=== PATIENT | male | born 1950 | race Caucasian/White ===

== ENCOUNTER 2025-07-15 11:15 | Outpatient (AMB) | payer MEDICARE, SELFPAY ==
--- NOTE | 2025-07-15 11:16 | A.PHYSOV ---
Vital Signs 07/15/25 11:19 Height 6 ft 1 in Weight 230 lb BMI 30.3 Intake Visit Reasons: eval for back injection Intake Note: Patient is a 75 year old male here with back pain today. Patient would like to discuss scheduling another back injection. Community Re[employer]ment Act Officer Required: No Allergies No Known Allergies Allergy (Verified 07/15/25 11:20) HPI Comments Details: History of Present Illness The patient is a 75 year old male presenting with a recurrence of right-sided back pain and sciatica related to a disc bulge. He reports the symptoms began again around June 27 after having good relief from a previous injection in January 2023. Patient underwent right L5 TFESI on 02/21/2023 with 100% reduction of his pain for over 2 years. The patient attributes the recurrence to being less diligent with his stretching exercises and overexertion from raking leaves. He has a history of physical therapy and is familiar with core strengthening exercises. He also noted new onset of left knee pain. Patient's pain has returned and he is requesting repeat injection. Pain Description - Location: The pain is located on the right side of his back. - Radiation: The pain radiates in a sciatic distribution. - Onset: The symptoms recurred around June 27. - Exacerbating factors: Symptoms are worsened by leaning backward and bending. - Provoking factors: The patient believes the pain was triggered by recent overexertion while raking leaves. [facility] Social History Alcohol intake: current Alcohol intake frequency: holidays/special occasions only Patient Tobacco Use Status: Never used Tobacco Use of substances other than those prescribed or required for medical reasons: No Current occupational status: employed Review of Systems Narrative Review of Systems - Musculoskeletal: Reports recurrent right-sided back pain with sciatica and new left knee pain. Physical Exam Exam Exam: Physical Exam Lumbar Spine: Examination of his lumbar spine, there is no visible swelling or deformity. He is tender to the right lower lumbar facets. Has full range of motion of his lumbar spine. He does have an increase in pain with facet loading. Special Tests: Lhermittes sign was negative Heel Toe walk is normal Left straight leg raise: Negative Right straight leg raise: Positive right Special tests Alfonso test is negative Ganslen's test is negative SI Joint compression test negative Redd test negative Piriformis stretch is negative Lower Extremities: Full range of motion bilateral lower extremities. No calf pain or edema Neuro: Sensation: Intact to lower extremities bilaterally Strength L2 (Psoas): 5/5 on the left and 5/5 on the right. L3 (Quads): 5/5 on the left and 5/5 on the right. L4 (Ant tibialis): 5/5 on the left and 5/5 on the right. L5 (EHL) 5/5 on the left and 5/5 on the right. S1 (Gastroc): 5/5 on the left and 5/5 on the right. DTR L4: (Patellar) Left 2 Right 2 S1: (Achilles) Left 1 Right 1 Babinski Downgoing No pathologic clonus. No involuntary movement. Vital Signs: BMI result Body Mass Index 30.3 Assessment & Plan Assessment & Plan (1) Lumbar radiculopathy: Code(s): M54.16 - Radiculopathy, lumbar region Category: Medical (2) Lumbar spondylosis: Code(s): M47.816 - Spondylosis without myelopathy or radiculopathy, lumbar region Category: Medical Plan Pain Management - Analgesia: The patient is requesting a repeat injection, noting a previous injection in January 2023 was effective. - Activities of Daily Living: The patient reports he has not been performing his stretching exercises and that the pain was exacerbated by yard work. Plan Patient was informed and verbally consented to the use of an ambient scribe for clinic note documentation during this visit. 1. Lumbago With Sciatica, Right Side To address the patient's recurrent right-sided back pain and sciatica, a lumbar injection will be administered. An order for the injection will be placed, and authorization will be obtained from his insurance. The procedure will be done in the office with sedation. The patient is encouraged to resume his core strengthening exercises to prevent future flare-ups. A follow-up visit is scheduled for three weeks after the procedure, which can be canceled if he experiences significant pain relief. 2. Arthralgia Of Left Knee The patient incidentally reported left knee pain; however, no specific evaluation or plan was discussed during this visit. Discussion Notes I discussed the patient's recurrence of right-sided back pain and sciatica, noting he had good relief from his previous injection in January 2023. We agreed to proceed with a repeat injection. I explained that we must first get insurance authorization and that the procedure would likely be scheduled for early July. The patient expressed his preference to have the procedure done in-office with sedation. We discussed the importance of resuming his core strengthening exercises once the pain improves to provide better long-term protection for his back. I advised him that he has a follow-up appointment scheduled for 3 weeks after the procedure but that he can cancel it if his symptoms have resolved. Patient Instructions - Our office will request authorization from your insurance for a back injection. - We will call you to schedule the injection once it is approved. - The procedure will take place in our office. - Once your pain improves after the injection, please resume your home stretching and core strengthening exercises. - You may call and cancel your follow-up appointment in 3 weeks if you are feeling significantly better. - Avoid activities that strain your back, such as heavy yard work. Coding Level of Care Code Tele Est Pt Level 3 (30805) Diagnoses Lumbar radiculopathy M54.16 Lumbar spondylosis M47.816
[2025-07-15 11:19] VITALS: BMI 30.3
--- OUTSIDE RECORDS SUMMARY | 2025-07-15 14:21 | XMS_ITS | Encounter Summary ---
Author Organization [facility] Address [address] [place] [address] Care Team Providers Care Equipment Scheduler Name Role Phone Benny Jolly MD Primary Care Provider + [phone] Encounter Details Date Type Department Care Team (Late st Contact Info) Description 07/01/2024 Scanned Document [address] [place] [address] [id number] Provider, Generic Social History Tobacco Use Types Packs/Day Years Used Date Smoking Tobacco: Never Smokeless Tobacco: Never Sex and Gender Information Value Date Recorded Sex Assigned at Not on file Legal Sex Male 12:22 PM EDT Gender Identity Not on file Sexual Orientation Not on file documented as of this encounter Plan of Treatment Not on file documented as of this encounter Visit Diagnoses Not on filedocumented in this encounter Care Teams Equipment Scheduler Relationship Specialty Start Date End Date Benny Jolly MD PCP - General 01/13/19 documented as of this encounter
--- OUTSIDE RECORDS SUMMARY | 2025-07-15 14:21 | XMS_ITS | Clinical Summary ---
Author Organization [facility] Address [address] [place] [address] Phone Care Team Providers Care Mall Manager Name Role Phone Jaki Jolly MD Primary Care Provider [phone] Allergies No known active allergies Medications terazosin (HYTRIN) 10 MG capsule Take 10 mg by mouth nightly at bedtime. Active oxybutynin (DITROPAN) 5 MG tablet Take 5 mg by mouth 3 (three) times a day. Active Social History Tobacco Use Types Packs/Day Years Used Date Smoking Tobacco: Never Assessed Education Answer Date Recorded Are you interested in more education? Not on demetrius e 11/19/2022 Are you concerned about learning? Not on file 11/19/2022 No 11/19/2022 No 11/19/2022 Digital Access Answer Date Recorded No 12/18/2022 No 12/18/2022 No 12/18/2022 Reliable internet access at home? Not on file 12/18/2022 Device with a working camera? Not on file Sex and Gender Information Value Date Recorded Sex Assigned at Not on file Legal Sex Male 10:40 AM EDT Gender Identity Not on file Sexual Orientation Not on file Last Filed Vital Signs Vital Sign Reading Time Taken Comments Blood Pressure 146/82 04/26/2019 2:39 PM EDT Pulse 72 04/26/2019 2:39 PM EDT Temperature - - Respiratory Rate - - Oxygen Saturation - - Inhaled Oxygen Concentration - - Weight - - Height - - Body Mass Index - - Plan of Treatment Health Maintenance Due Date Last Done Comments LIPID PANEL 1952 DEPRESSION SCREENING 1964 SMOKING Hx and SMOKELESS TOBACCO SCREENING 1965 HEPATITIS C SCREENING 1970 COLOGUARD 1997 COLONOSCOPY 1997 COLORECTAL CANCER SCREENING 1997 FIT TEST 1997 FOBT 1997 SIGMOIDOSCOPY 1997 VIRTUAL COLONOSCOPY 1997 PNEUMOCOCCAL VACCINES (50+ years) (1 of 1 - PCV) 2002 ZOSTER VACCINES (2 of 3) 10/03/2012 08/08/2012 Adult Td,Tdap Booster 03/02/2021 03/02/2011, 004 INFLUENZA VACCINE (#1) 2025 8, 05/23/2012, 05/09/2008, Additional history exists COVID-19 VACCINE (2 - 2024- season) 2025 09/26/2020 RSV VACCINE (1 - 1-dose 75+ series) 2027 HEPATITIS A VACCINES Aged Out No long er eligible based on patient's age to complete this topic HIB VACCINES Aged Out No longer eligi ble based on patient's age to complete this topic MENINGOCOCCAL VACCINES (ACWY) Aged Out No longer eligible based on patient's age to complete this topic MENINGOCOCCAL VACCINES (B) Aged Out N o longer eligible based on patient's age to complete this topic Medical Devices Not on file Insurance [facility] H[facility] POS [facility] POS [employer] [facility] H[facility] POS HMO POS [facility] HMO POS Care Teams Mall Manager Relationship Specialty Start Date End Date Jaki Jolly MD [address] [place] [id number] PCP - General Internal Medicine 01/15/19 Additional Source Comments The information contained in this document represents components of the legal health record. It is not the complete legal health record.[facility]
--- OUTSIDE RECORDS SUMMARY | 2025-07-15 14:21 | XMS_ITS ---
Author Name [facility] Organization Unknown History of Medication Use Medication Directions Dispensed Refills Start Date End Date Stat us benzonatate (TESSALON) 200 MG capsule Take 1 capsule (200 mg total) by mouth 3 (three) times a day as needed for cough. 07/04/2024 active predniSONE (DELTASONE) 20 MG tablet Take 2 tablets (40 mg total) by mouth daily. 07/04/2024 active cetirizine (ZyrTEC) 10 MG tablet Take 1 tablet (10 mg total) by mouth daily. 07/01/2024 08/01/2024 active trimethoprim-polymyx in b (POLYTRIM) ophthalmic solution Administer 1 drop into the left eye every 4 (four) hours. 07/01/2024 07/09/2024 active azithromycin (ZITHROMAX) 250 MG tablet Take 2 tabs PO on day 1, followed by 1 tab PO on days 2 through 5. 07/01/2024 07/06/2024 active albuterol (PROVENTIL HFA; VENTOLIN HFA) 108 (90 Base) MCG/ACT inhaler Inhale 2 puffs 4 times daily (every 6 hours) as needed for wheezing or shortness of breath. 07/01/2024 07/04/2024 active proMETHAZINE-dextrom ethorphan (proMETHAZINE-DM) 6.25-15 MG/5ML syrup Take 5 mL by mouth every 4 (four) hours as needed for cough. 07/01/2024 active lisinopril (PRINIVIL,ZeSTRIL) 40 MG tablet Take 40 mg by mouth daily. 03/15/2024 active furosemide (LASIX) 20 MG tablet Take 20 mg by mouth daily. 11/22/2023 active terazosin (HYTRIN) 1 MG capsule Take 1 mg by mouth nightly. active Problems Problem Status Onset Date Problem Type Date of Resoluti on Source Bronchitis active EncounterDiagnosisAct [facility] Encounters Encounter Type Encounter Reason Primary Diagnosis Location Date Ambulatory Bronchitis, not specified as acute or chronic Bronchitis, not specified as acute or chronic [email or web address] 07/04/2024 Ambulatory Cough Cough [facility] 07/01/2024 Care Team Organization Name Specialty Phone Email Start Date End Da te [facility] 07/03/2024 10/10/2024 [email or web address] 07/01/2024 [facility] 06/01/2022 03/12/2024
--- OUTSIDE RECORDS SUMMARY | 2025-07-15 14:21 | XMS_ITS | Encounter Summary ---
Author Organization [facility] Address [address] [place] [address] Phone Care Team Providers Care Senior Corporate Recruiter Name Role Phone Jaki Jolly MD Primary Care Provider [phone] Encounter Details Date Type Department Care Team (Late st Contact Info) Description 04/26/2019 Procedure Pass [facility] [address] [place] [address] Social History Tobacco Use Types Packs/Day Years Used Date Smoking Tobacco: Never Assessed Sex and Gender Information Value Date Recorded Sex Assigned at Not on file Legal Sex Male 10:40 AM EDT Gender Identity Not on file Sexual Orientation Not on file documented as of this encounter Plan of Treatment Not on file documented as of this encounter Visit Diagnoses Not on filedocumented in this encounter Care Teams Senior Corporate Recruiter Relationship Specialty Start Date End Date Jaki Jolly MD [address] [place] [address] PCP - General Internal Medicine 01/15/19 documented as of this encounter Additional Source Comments The information contained in this document represents components of the legal health record. It is not the complete legal health record.[facility]
--- OUTSIDE RECORDS SUMMARY | 2025-07-15 14:21 | XMS_ITS | Encounter Summary ---
Author Organization [facility] Address [address] [place] [address] Care Team Providers Care Experimental Machinist Name Role Phone Benny Jolly MD Primary Care Provider [phone] Encounter Details Date Type Department Care Team (Late st Contact Info) Description 07/04/2024 Scanned Document [address] [place] [address] [phone] Provider, Generic Social History Tobacco Use Types [...] on filedocumented in this encounter Care Teams Experimental Machinist Relationship Specialty Start Date End Date Benny Jolly MD PCP - General 01/13/19 documented as of this encounter
--- OUTSIDE RECORDS SUMMARY | 2025-07-15 14:21 | XMS_ITS | Clinical Summary ---
Author Organization [facility] [address] [facility] lding Address [address] [place] [address] Phone Care Team Providers Care Welder Fitter Apprentice Name Role Phone Jaki Jolly MD Primary Care Provider [phone] Allergies No known active allergies Medications selenium sulfide (SELSUN) 2.5 % lotion Apply topically 1 (one) time each day if needed for dandruff. Leave on scalp 2-3 minutes, rinse thoroughly 120 mL 1 024 Active hydrocortisone (ANUSOL-HC) 25 mg suppository Insert 1 suppository (25 mg total) into the rectum 2 (two) times a day if needed for hemorrhoids. 12 suppository 1 025 Active betamethasone dipropionate (DIPROSONE) 0.05 % cream Apply topically 2 (two) times a day if needed for irritation or rash. 15 g 2 025 2025 Active ketoconazole (NIZORAL) 2 % shampoo APPLY TOPICALLY 1 (ONE) TIME PER WEEK. APPLY TO DAMP SKIN, LATHER, LEAVE ON 5 MINUTES, AND RINSE 120 mL 1 025 Active furosemide (LASIX) 20 mg tablet TAKE 1 TABLET BY MOUTH EVERY DAY 90 tablet 1 025 Active lisinopril (PRINIVIL,ZESTR IL) 40 mg tablet Take 1 tablet (40 mg total) by mouth 1 (one) time each day. 90 tablet 1 025 Active omeprazole (PriLOSEC) [address] capsule Take 1 capsule (20 mg total) by mouth 1 (one) time each day. Do not crush or chew. 90 each Active fluticasone propionate (FLONASE) 50 mcg/actuation nasal spray SPRAY 2 SPRAYS INTO EACH NOSTRIL EVERY DAY 48 mL 1 Active fluticasone propionate (FLONASE) 50 mcg/actuation nasal spray Administer 2 sprays into each nostril 1 (one) time each day. 48 mL 025 2024 Discontinued amoxicillin-cla vulanate (AUGMENTIN) 875-125 mg per tablet Take 1 tablet by mouth 2 (two) times a day for 7 days. 14 each 025 2024 dextromethorpha n-guaiFENesin (ROBITUSSIN-DM) 10-100 mg/5 mL syrup Take 10 mL by mouth every 6 (six) hours if needed for cough for up to 7 days. 280 mL 025 2024 Active Problems Problem Noted Date Diagnosed Date Colon cancer screening 06/27/2025 Overview (06/27/2025): 06/14--5 yrs Gastroesophageal reflux disease without esophagi tis 12/24/2024 Overview (12/24/2024): EGD 12/16. Dilation stricture Esophageal dysmotility 05/08/2024 Schatzki's ring of distal esophagus 05/08/2024 Overview (12/24/2024): Dilated 12/16 Primary hypertension 02/09/2022 Bilateral inguinal hernia without obstruction or gangrene 01/10/2019 Peripheral vascular disease 12/08/2018 Overview (05/08/2024): Atherosclerosis and abdominal aorta and branching vasculature noted on CT scan 12/10, started on statin Hypercholesteremia 12/08/2018 Obesity (BMI 30-39.9) 02/15/2018 Chronic insomnia 10/28/2016 Overview (05/08/2024): Seen in pulmo September 2016 and sleep study ordered. Note 10/25/2016 from Sleep Medicine. indicated patient declining appt to schedule. [email or web address] message sent to patient. 04/2017 - Home Sleep Study did not reveal sleep apnea. [email or web address] message to Dagoberto asking him to schedule FU and would try to order diagnostic overnight study. Allergic rhinitis 08/16/2006 Benign prostatic hyperplasia without lower urinary tract symptoms 08/16/2006 Overview (05/08/2024): Intol Flomax TURP 01/08 Resolved Problems Problem Noted Date Diagnosed Date Resolved Date Hiatal hernia 11/21/2020 12/24/2024 Overview (05/08/2024): Barium swallow 11/12. Esoph stricuture Fibroepithelial polyp 10/24/20172024 Seborrhea 08/16/2006 12/24/2024 Overview (05/08/2024): scalp Encounters Date Type Department Care Team Description 07/03/2025 4:02 PM EST - 07/03/2025 11:59 PM EST [facility] [address] [place] [address] Subacute cough Discharge Disposition: Home or Self Care 07/03/2025 3:45 PM EST Office Visit Walk-In Clinic - [address] [phone] Leonel Corey PA Acute bacterial rhinosinusitis (Primary Dx); Subacute cough 06/27/2025 11:05 AM EST Lab Draw Station - [address] [phone] Primary hypertension 06/27/2025 10:45 AM EST Office Visit Adult Medicine - [address] [phone] Jaki Jolly MD Primary hypertension (Primary Dx); Colon cancer screening; Encounter for immunization from Last 3 Months Immunizations Immunization Administration Dates Next Due Influenza trivalent, 0.5mL ( Fluad) 65yo and older 06/27/2025 Influenza trivalent, 0.5mL, preservative free (Fluarix; FluLaval; Fluzone) ages 6mo and older (Afluria) 3 years and older 05/23/2012,05/09/2008,06/24/2006,07/13,06/18/2003 Influenza, Unspecified 05/05/2021 Moderna SARS-CoV-2 COVID-19, mRNA, LNP-S, preservative free 10/24/2020,09/26/2020 Pneumococcal conjugate 13 va lent (Prevnar 13, PCV13) 2mo and older 08/03/2021 Pneumococcal polysaccharide 23 valent (Pneumovax 23) 2yo and older 03/20/2020 Td Tetanus diptheria (Tdvax) 7yo and older 04/15/2022,07/10/2004 Tdap Tetanus diptheria acell ular pertussis (Boostrix; Adacel) 7yo and older 03/02/2011 Zoster Live 08/08/2012 Surgical History Surgery Date Site/Laterality Comments OTHER SURGICAL HISTORY 2004 PROCEDURE: NASAL ENDOSCOPY, POLYPECT COLONOSCOPY 08/2005 PROCEDURE: HISTORICAL COLONOSCOPY COLONOSCOPY 05/06/2011 PROCEDURE: SD COLONOSCOPY STOMA DX INCLUDING COLLJ SPEC SPX; COMMENT: normal; repeat in ten yrs TURP / TRANSURETHRAL INCISIO N / DRAINAGE PROSTATE 12/2016 PROCEDURE: HISTORICAL TURP ESOPHAGOGASTRODUODENOSCOPY 01/15/2021 PROCEDURE: SD EGD TRANSORAL BIOPSY SINGLE/MULTIPLE; COMMENT: No stricture. 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 mbosacral intervertebral disc 10/14/03 DX:Degeneration of lumbar or lumbosacral intervertebral disc Lumbago 10/14/03 DX:Lumbago Sciatica 10/14/03 DX:Sciatica Need for prophylactic vaccin ation and inoculation against influenza 06/18/03 DX:Need for prophylactic vaccination and inoculation against influenza Nasal/sinus dis NEC 04/10/03 DX:Nasal/sin us dis NEC Historical Medical DX 05/14/02 DX:Unspeci fied viral warts Contact dermatitis and other eczema due to plants (except food) 11/24/01 DX:Contact dermatitis and other eczema due to plants (except food) Acute bronchitis 09/03/01 DX:Acute bronch itis Unspecified asthma(493.90) 09/03/01 DX:Un specified asthma(493.90) Family history of malignant neoplasm of gastrointestinal tract 11/26/99 DX:Family history of maligna nt neoplasm of gastrointestinal tract Stricture and stenosis of esophagus 11/06/99 DX:Stricture and stenosis of esophagus Ulcer of lower limbs, except pressure ulcer (CMS/HCC V24, CMS/HCC V28) 11/19/98 DX:Ulcer of lower young bs, except pressure ulcer Dermatophytosis of nail 11/19/98 DX:Tanana tophytosis of nail Unspecified glaucoma(365.9) DX:U nspecified glaucoma(365.9) Esophageal dysmotility DX:Esopha geal dysmotility Hiatal hernia DX:Hiatal hernia Schatzki's ring of distal esophagus DX:Schatzki's ring of distal esophagus Gastroesophageal reflux dise ase without esophagitis 12/24/2024 EGD 12/16. Dilation stricture Family History Medical History Relation Name Comments No Known Problems Daughter Hypertension Father Other cancer Father colon Other cancer Mother breast No Known Problems Sister 1 No Known Problems Sister 2 No Known Problems Son 1 No Known Problems Son 2 Blindness Neg Hx Cataracts Neg Hx Glaucoma Neg Hx Macular degeneration Neg Hx Strabismus Neg Hx Relation Name Status Comments Daughter Alive Father Mother Sister 1 Alive Sister 2 Alive Son 1 Alive Son 2 Alive Social History Tobacco Use Types Packs/Day Years Used Date Smoking Tobacco: Never Smokeless Tobacco: Never Tobacco Cessation:Counseling Given: Not Answered Alcohol Use Standard Drinks/Week Comments Yes 0 (1 standard drink = 0.6 oz pur e alcohol) 2 Housing Instability Answer Date Recorde d Are you worried that in the next 2 months you may not have stable housing? No 06/19/2024 Food Access & Nutrition Answer Date Rec orded Do you have access to a vari ety of food including fruits and vegetables? No 06/19/2024 Access to Healthcare Answer Date Record ed Within the last 3 months, ho w many times did you visit the emergency department for your medical care? 0 06/19/2024 Health Literacy Answer Date Recorded How often do you need to hav e someone help you when you read instructions, pamphlets, or other written material from your doctor or pharmacy? Never 06/19/2024 Caregiver: How often do you need to have someone help you when you read instructions, pamphlets, or other written material from your doctor or pharmacy? Not on file 06/19/2024 Financial Risk Answer Date Recorded How hard is it for you to pa y for the very basics like food, housing, medical care, and air conditioning / heating? Not very hard 06/19/2024 Transportation Answer Date Recorded Has the lack of transportati on kept you from meetings, work, or from getting things needed for daily living? No Has the lack of transportati on kept you from medical appointments or from getting medications? No 06/19/2024 Social Isolation Answer Date Recorded How often do you feel lonely or isolated from th ose around you? Never 06/19/2024 Food Risk Answer Date Recorded Within the past 12 months we worried whether our food would run out before we got money to buy more. Never true 06/19/2024 Within the past 12 months th e food we bought just didn't last and we didn't have money to get more. Never true 06/19/2024 Dependent Care Answer Date Recorded Do you need help finding or paying for care for your loved ones. For example, residential child care counselor or elderly care for an older adult? No 06/19/2024 Education Answer Date Recorded Do you think completing more education or training, like finishing a GED, going to college, or learning a trade, would be helpful for you? No 06/19/2024 Employment and Income Answer Date Recor ded During the last four weeks, have you been actively looking for work? No 06/19/2024 Living Situation Answer Date Recorded What is your living situation? Unrecognized valu e 06/19/2024 Interpersonal Safety Answer Date Record ed Physical Abuse Unrecognized value 12/04/2024 Verbal Abuse Unrecognized value 12/04/2024 Sex and Gender Information Value Date Recorded Sex Assigned at Not on file Legal Sex Male 3:49 PM EST Gender Identity Not on file Sexual Orientation Not on file Occupation Industry Job Start Date Job End Date RETIRED Not on file Not on file Not on file Last Filed Vital Signs Vital Sign Reading Time Taken Comments Blood Pressure 159/79 07/03/2025 3:42 PM EST Pulse 80 07/03/2025 3:42 PM EST Temperature 36.7 C (98 F) 07/03/2025 3:42 PM EST Respiratory Rate 14 12/04/2024 3:24 PM EDT Oxygen Saturation 98% 07/03/2025 3:42 PM EST Inhaled Oxygen Concentration - - Weight 111 kg (245 lb 12.8 oz) 06/27/2025 10:38 AM EST Height 185.4 cm (6' 1 ) 06/27/2025 10:38 AM EST Body Mass Index 32.43 06/27/2025 10:38 AM EST Plan of Treatment Upcoming Encounters Date Type Department Care Team (Late st Contact Info) Description 07/17/2025 2:00 PM EST Office Visit Adult [facility] [address] [place] [phone] Lindsay Rizvi NP [address] [place] [address] 01/15/2026 10:45 AM EDT Office Visit [facility] [address] [place] [phone] Jaki Jolly MD [address] [place] [address] Health Maintenance Due Date Last Done Comments COVID-19 Vaccine ( season) 2025 07/06/2021, 10/24/2020, 09/26/2020 Medicare Annual Wellness Visit 06/19/2025 06/19/2024 Social Influencers of Health Screening 06/19/2025 06/19/2024 Falls Risk Assessment 12/04/2025 12/04/2024, 024 Colorectal Cancer Screening: Colonoscopy 05/26/2026 05/26/2021 Hypertension/CHF/CAD Annual BMP Blood Test 06/27/2026 06/27/2025, 12/24/2024, 03/15/2024, Additional history exists Cholesterol Screening (Lipid Panel) 12/24/2029 12/24/2024, 06/07/2023 DTaP,Tdap,and Td Vaccines (5 - Td or Tdap) 08/30/2034 08/30/2024, 04/15/2022, 03/02/2011, Additional history exists Hepatitis C Screening Completed 11/27/2013 Zoster Vaccines Completed 11/25/2020, 07/25, 08/08/2012 Pneumococcal Vaccine: 50+ Years Completed 08/03/2021, 03/20/2020 RSV Immunization Adult Patients Completed 08/16/2024 Depression Screening Completed 12/17/2024 Influenza Vaccine Completed 06/27/2025, , 05/29/2021, Additional history exists HIB Vaccines Aged Out No longer eligi ble based on patient's age to complete this topic HPV Vaccines Aged Out No longer eligi ble based on patient's age to complete this topic Hepatitis A Vaccines Aged Out No long er eligible based on patient's age to complete this topic Hepatitis B Vaccines Aged Out No long er eligible based on patient's age to complete this topic IPV Vaccines Aged Out No longer eligi ble based on patient's age to complete this topic MMR Vaccines Aged Out No longer eligi ble based on patient's age to complete this topic Meningococcal ACWY Vaccine Aged Out N o longer eligible based on patient's age to complete this topic Meningococcal B Vaccine Aged Out No l onger eligible based on patient's age to complete this topic RSV Immunization Patients Under 20 months Aged Out No longer eligible based on patient's age to complete this topic Varicella Vaccines Aged Out No longer eligible based on patient's age to complete this topic Procedures Procedure Name Priority Date/Time Associated Diagnosis Comments POC RESPIRATORY SYNCYTIAL VIRUS Routine 07/03/2025 6:32 PM EST Subacute cough XR CHEST 2 VIEWS STAT 07/03/2025 4:07 PM EST Subacute cough BASIC METABOLIC PANEL Routine 06/27/2025 11:01 AM EST Primary hypertension LIPID PANEL WITH REFLEX TO DIRECT LDL Routine 12/24/2024 10:11 AM EDT Screening, lipid COLONOSCOPY Routine 05/26/2021 HEPATITIS C SCREENING Routine 11/27/2013 from Last 3 Months or Most Recently Relevant to Health Maintenance Results * POC respiratory syncytial virus manually resulted (07/03/2025 6:32 PM EST) RSV Rapid AG POC Negative Negative Internal Control Pass Yes Yes Swab Nasopharyngeal structure / Unknown 07/03/2025 6:32 PM EST us Leonel CARR POINT OF CARE TEST ENTER/E DIT ORDERABLES Final Result * XR Chest 2 Views (07/03/2025 4:07 PM EST) Anatomical Region Laterality Modality Body Radiographic Maribel ging 07/03/2025 4:14 PM EST Impressions 07/03/2025 4:18 PM EST No evidence of an acute chest process. -------- FINAL REPORT -------- Dictated By: Lashawn Arellano Dictated Date: 07/03/2025 16:14 ET Assigned Physician: Lashawn Arellano Reviewed and Electronically Signed By: Lashawn Arellano Signed Date: 07/03/2025 16:18 ET Workstation ID: [id number] Transcribed By: Self Edit Transcribed Date: 07/03/2025 16:14 ET Narrative 07/03/2025 4:18 PM EST EXAM: Chest x-ray HISTORY: Subacute cough. COMPARISON: 07/19/2024 FINDINGS: PA and lateral views of the chest were performed. No focal infiltrate, pleural effusion, or evidence of pulmonary edema. Heart is not enlarged. Mediastinal contours are stable and within normal limits. Degenerative changes in the spine. Procedure Note Lashawn Arellano MD - 07/03/2025 EXAM: Chest x-ray HISTORY: Subacute cough. COMPARISON: 07/19/2024 FINDINGS: PA and lateral views of the chest were performed. No focal infiltrate, pleural effusion, or evidence of pulmonary edema.Heart is not enlarged. Mediastinal contours are stable and within normallimits. Degenerative changes in the spine. IMPRESSION: No evidence of an acute chest process. -------- FINAL REPORT -------- Dictated By: Lashawn Arellano Dictated Date: 07/03/2025 16:14 ET Assigned Physician: Lashawn Arellano Reviewed and Electronically Signed By: Lashawn Arellano Signed Date: 07/03/2025 16:18 ET Workstation ID: [id number] Transcribed By: Self Edit Transcribed Date: 07/03/2025 16:14 ET us Leonel CARR IMG XR PROCEDURES Final Re sult * (ABNORMAL) Basic metabolic panel (06/27/2025 11:01 AM EST) Sodium 140 133 - 145 mmol/L 06/27/2025 2:14 PM [facility] Potassium 3.9 3.5 - 5.5 mmol/L 06/27/2025 2:14 PM [facility] Chloride 101 96 - 110 mmol/L 06/27/2025 2:14 PM [facility] CO2 29 21 - 32 mmol/L 06/27/2025 2:14 PM [facility] Anion Gap 10 3 - 11 06/27/2025 2:14 PM [facility] Glucose 107(H) 70 - 100 mg/dL 06/27/2025 2:14 PM [facility] BUN 16 5 - 25 mg/dL 06/27/2025 2:14 PM [facility] Creatinine 0.93 0.70 - 1.30 mg/dL 06/27/2025 2:14 PM [facility] eGFR 87 >=60 mL/min/1. 73m2 06/27/2025 2:14 PM [facility] Comment:Calculation based on the Chronic Kidney Disease Epidemiology Collaboration (CKD-EPI) equation refit without adjustment for race. BUN/Creatinine Ratio 17.2 06/27/2025 2:14 PM EST [facility] Calcium 8.8 8.5 - 10.5 mg/dL 06/27/2025 2:14 PM EST [facility] Blood Venous blood specimen / Unknown Venipuncture / Unknown 06/27/2025 11:01 AM EST 06/27/2025 11:02 AM EST C Juan Francisco Jolly MD LAB BLOOD ORDERABLES Final Res ult [facility] [address] [place] [address], [place] [phone] * (ABNORMAL) Lipid panel with reflex to direct LDL (12/24/2024 10:11 AM EDT) Cholesterol 162 0 - 200 mg/dL LAB CHEMISTRY METHOD 12/24/2024 1:52 PM EDT [facility] Triglycerides 72 0 - 150 mg/dL LAB CHEMISTRY METHOD 12/24/2024 1:52 PM EDT [facility] HDL 45 >=40 mg/dL LAB CHEMISTRY METHOD 12/24/2024 1:52 PM EDT [facility] LDL Calculated 103(H) 0 - 100 mg/dL LAB CHEMISTRY METHOD 12/24/2024 1:52 PM EDT [facility] VLDL Cholesterol Lico 14.4 mg/dL LAB CHEMISTRY METHOD 12/24/2024 1:52 PM EDT [facility] Non HDL Chol. (LDL+VLDL) 117 <145 mg/dL LAB CHEMISTRY METHOD 12/24/2024 1:52 PM EDT [facility] Chol/HDL Ratio 3.6 0.0 - 4.4 LAB CHEMISTRY METHOD 12/24/2024 1:52 PM [facility] Blood Venous blood specimen / Unknown Venipuncture / Unknown 12/24/2024 10:11 AM EDT 12/24/2024 10:11 AM EDT Jaki Jolly MD LAB BLOOD ORDERABLES Final Res ult [facility] [address] [place] [address], * Colonoscopy (05/26/2021) Colonoscopy normal, sbstracted Anatomical Region Laterality Modality Other Historical Provider HEALTH MAINTENANCE Final Result * Hepatitis C Screening (11/27/2013) Hepatitis C Screening abstracted Historical Provider HEALTH MAINTENANCE Final Result from Last 3 Months or Most Recently Relevant to Health Maintenance Insurance MEDICARE [facility] Care Teams Welder Fitter Apprentice Relationship Specialty Start Date End Date Jaki Jolly MD [address] [place] [id number] PCP - General 11/14/01
--- OUTSIDE RECORDS SUMMARY | 2025-07-15 14:21 | XMS_ITS | Encounter Summary ---
Author Organization [facility] Address [address] [place] [address] Phone Care Team Providers Care Malt Liquors Sales Supervisor Name Role Phone Jaki Jolly MD Primary Care Provider [phone] Encounter Details Date Type Department Care Team (Late st Contact Info) Description 04/26/2019 Procedure Pass [facility] [address] [place] [address] Social History Tobacco Use Types Packs/Day Years [...] on filedocumented in this encounter Care Teams Malt Liquors Sales Supervisor Relationship Specialty Start Date End Date Jaki Jolly MD [address] [place] [address] PCP - General Internal Medicine 01/15/19 documented as of this encounter Additional Source Comments The information contained in this document represents components of the legal health record. It is not the complete legal health record.[facility]
--- OUTSIDE RECORDS SUMMARY | 2025-07-15 14:21 | XMS_ITS | Clinical Summary ---
Author Organization [facility] Address [address] [place] [address] Care Team Providers Care Loom Checker Name Role Phone Benny Jolly MD Primary Care Provider [phone] Allergies No known active allergies Medications terazosin (HYTRIN) 1 MG capsule Take 1 mg by mouth nightly. Active lisinopril (PRINIVIL,ZeSTR IL) 40 MG tablet Take 40 mg by mouth daily. 4 Active furosemide (LASIX) 20 MG tablet Take 20 mg by mouth daily. 4 Active proMETHAZINE-de xtromethorphan (proMETHAZINE-D M) 6.25-15 MG/5ML syrupIndication s:Acute bacterial bronchitis Take 5 mL by mouth every 4 (four) hours as needed for cough. 120 mL 4 Active cetirizine (ZyrTEC) 10 MG tabletIndicatio ns:Acute bacterial bronchitis Take 1 tablet (10 mg total) by mouth daily. 30 tablet 4 Active trimethoprim-po lymyxin b (POLYTRIM) ophthalmic solutionIndicat ions:Acute bacterial bronchitis Administer 1 drop into the left eye every 4 (four) hours. 10 mL 4 Active predniSONE (DELTASONE) 20 MG tabletIndicatio ns:Bronchitis Take 2 tablets (40 mg total) by mouth daily. 10 tablet 4 Active albuterol (PROVENTIL HFA; VENTOLIN HFA) 108 (90 Base) MCG/ACT inhalerIndicati ons:Bronchitis Inhale 2 puffs 4 times daily (every 6 hours) as needed for wheezing or shortness of breath. 1 each 4 Active benzonatate (TESSALON) 200 MG capsuleIndicati ons:Bronchitis Take 1 capsule (200 mg total) by mouth 3 (three) times a day as needed for cough. 30 capsule 4 Active Active Problems No known active problems Social History Tobacco Use Types Packs/Day Years Used Date Smoking Tobacco: Never Smokeless Tobacco: Never Tobacco Cessation:Counseling Given: Not Answered Sex and Gender Information Value Date Recorded Sex Assigned at Not on file Legal Sex Male 12:22 PM EDT Gender Identity Not on file Sexual Orientation Not on file Last Filed Vital Signs Vital Sign Reading Time Taken Comments Blood Pressure 163/92 07/04/2024 6:26 PM EST Pulse 76 07/04/2024 6:26 PM EST Temperature 36.5 C (97.7 F) 07/04/2024 6:26 PM EST Respiratory Rate 18 07/04/2024 6:26 PM EST Oxygen Saturation 96% 07/04/2024 6:26 PM EST Inhaled Oxygen Concentration - - Weight 107 kg (235 lb) 07/01/2024 12:00 PM EST Height 185.4 cm (6' 1 ) 07/01/2024 12:00 PM EST Body Mass Index 31 07/01/2024 12:00 PM EST Plan of Treatment Health Maintenance Due Date Last Done Comments Advance Care Planning 1950 Hepatitis C Virus Screening 1950 DTaP/Tdap/Td Vaccines (1 - Tdap) 1971 Colonoscopy 1997 Pneumococcal Vaccines 50+ (1 of 1 - PCV) 2002 Zoster (Shingles) Vaccine (1 of 2) 2002 Influenza Vaccine 02/22/2025 05/29/2021, , 06/14/2020, Additional history exists COVID-19 Vaccine ( season) 2025 07/06/2021, 10/24/2020, 09/26/2020 RSV Vaccine 50 years and older and Patients (1 - 1-dose 75+ series) 2027 Hepatitis B Vaccines Aged Out No long er eligible based on patient's age to complete this topic Insurance BLUE CROSS OUT [facility] MEDICARE PART A & B Care Teams Loom Checker Relationship Specialty Start Date End Date Benny Jolly MD PCP - General 01/13/19
--- OUTSIDE RECORDS SUMMARY | 2025-07-15 14:21 | XMS_ITS | Encounter Summary ---
Author Organization [facility] Address [address] [place] [address] Care Team Providers Care Support Service Tech Name Role Phone Benny Jolly MD Primary Care Provider [phone] Encounter Details Date Type Department Care Team (Late st Contact Info) Description 07/04/2024 Scanned Document [address] [place] [phone] Provider, Generic Social History Tobacco Use Types [...] on filedocumented in this encounter Care Teams Support Service Tech Relationship Specialty Start Date End Date Benny Jolly MD PCP - General 01/13/19 documented as of this encounter
--- OUTSIDE RECORDS SUMMARY | 2025-07-15 14:21 | XMS_ITS | Encounter Summary ---
Author Organization [facility] Address [address] [place] [address] Care Team Providers Care Superintendent Name Role Phone Benny Jolly MD Primary Care Provider + [phone] Encounter Details Date Type Department Care Team (Late st Contact Info) Description 07/01/2024 Scanned Document [address] [place] [address] [phone] Provider, Generic Social History Tobacco Use Types [...] on filedocumented in this encounter Care Teams Superintendent Relationship Specialty Start Date End Date Benny Jolly MD PCP - General 01/13/19 documented as of this encounter
== END 2025-07-15 11:35 | disposition home or self-care (01) ==
LOC: HO.HPHYS 11:15
PROVIDERS: PCP Pediatrics; Visit Provider Physician Assistant
DX: M54.16 Radiculopathy, lumbar region (principal); M47.816 Spondylosis without myelopathy or radiculopathy, lumbar region
CPT/HCPCS: 99213

== ENCOUNTER → 2025-07-15 11:15 | Outpatient (BNVA) | payer MEDICARE, SELFPAY | PROVIDERS: PCP Pediatrics; Visit Provider Physician Assistant | DX: M54.16 Radiculopathy, lumbar region (principal); M47.816 Spondylosis without myelopathy or radiculopathy, lumbar region | CPT/HCPCS: 99212 ==